=== PATIENT | female | born 1950 | race Caucasian/White ===

== ENCOUNTER → 2017-10-15 10:50 | Outpatient (CLI) | payer MEDICARE, OTHER | END | disposition home or self-care (01) | LOC: D.RAD 10:50 | DX: J01.90 Acute sinusitis, unspecified (principal) ==

== ENCOUNTER 2018-01-14 11:51 | Inpatient (IN) | payer MEDICARE, OTHER ==
[~2018-01-14] VITALS: Ht 165.1 cm; Wt 92.4 kg
--- NOTE | ~2018-01-14 | OP ---
PATIENT NAME: WALDEMAR WOLFE MEDICAL RECORD: [id number] :46 LOCATION:D.CVI D.CV04 ADMISSION DATE:01/14/18 SURGEON: OLE IVORY MD DATE OF OPERATION: 01/17/2018 SURGEON: Ole Ivory MD CUTTER WET MACHINE: APOLLO García MD and XIN Jones OPERATION PERFORMED: 1. Coronary artery bypass graft times 3 (left internal mammary to LAD, reverse saphenous vein graft from aorta to obtuse marginal and aorta to right coronary artery). 2. Endoscopic saphenous vein harvest. PREOPERATIVE DIAGNOSES: Coronary disease including critical right coronary stenosis and left main coronary stenosis with rest angina. POSTOPERATIVE DIAGNOSEIS: Coronary disease including critical right coronary stenosis and left main coronary stenosis with rest angina. ANESTHESIA: General endotracheal anesthesia. ESTIMATED BLOOD LOSS: Total cardiopulmonary bypass with Cell Saver retransfusion. COMPLICATIONS: None. SPECIMENS: Mediastinal lymph node initially benign. CONDITION: Stable. DISPOSITION: CV ICU. OPERATIVE FINDINGS: 1. Normal transesophageal echocardiography. 2. Fatty heart, but good contractility. 3. Dense adhesions in the lower thoracic cavity to the last one-third of the internal mammary artery, but the first two-thirds reached easily to the LAD with excellent flow. A somewhat thickened internal mammary artery wall. The LAD was a 2.0-mm vessel and there was excellent Doppler flow after anastomosis and after reversal of heparin. 4. Good quality greater saphenous vein was somewhat thin and near the skin in the portion around the knee and this was used for the obtuse marginal graft. The larger and thicker wall portion used for the right coronary graft. 5. Obtuse marginal 2.0 mm. 6. Right coronary artery 2.0 mm just past the acute margin. OPERATIVE INDICATION: Coronary artery disease including left main coronary stenosis, critical right coronary stenosis and rest angina. DESCRIPTION OF PROCEDURE: The patient was brought to the operating suite. General anesthesia was obtained, the patient was prepped and draped. Greater saphenous vein was harvested in the right lower extremity utilizing endoscopic technique. The second incision was also made, side branches divided. Vessel OPERATIVE REPORT [id number] WALDEMAR WOLFE ligated proximally and distally, removed. Side branches were clipped and leakage sites were oversewn. The leg was later closed in 2 layers. Median sternotomy incision was made. Subcutaneous tissue divided with electrocautery. Sternum was divided with a saw. Left hemisternum was elevated. Left pleural cavity was entered. Left internal mammary vein was taken as a pedicle graft. Sternal retractor was placed. Prepericardial fat had a small lymph node that was sent, about 1 cm lymph node returned benign. Pericardium was opened and heparin was given. Aorta was cannulated. Dual stage venous cannula was inserted. The internal mammary was clipped distally and made ready for anastomosis. The patient was placed on cardiopulmonary bypass. Sites for distal anastomoses were selected. The patient's temperature was allowed to drift downwardly. Crossclamp was placed. Antegrade cardioplegia needle was placed and the cardioplegia given antegrade and this repeated at 20-minute intervals during the crossclamp time. Distal anastomoses were performed in standard technique. Proximal anastomosis with a single cross-clamp technique. Aortic root was de-aired by removing the cross clamp, venting the root, tying the proximal anastomoses, venting the vein graft and then restoring flow in all grafts. Proximal and distal anastomotic sites were inspected for bleeding. The patient was fully rewarmed, weaned from cardiopulmonary bypass and was stable. The patient was decannulated. Aortic cannulation site was oversewn with a pledgeted Prolene suture. Thorough irrigation was undertaken and graft lay appropriately. Protamine was given. Drains were placed in the mediastinum and left pleural cavity. Ventricular pacing wires were placed. Left chest was evacuated and irrigated. The internal mammary harvest site was without bleeding. Pericardial fat was loosely reapproximated. Sternum was closed with a weave system and wires. The patient was stable and the chest closed. Fascia was closed. Subcutaneous tissue was closed at the lower end of the sternotomy where the other incisions met. The fascia was good and it was closed in interrupted fashion at this point. Subcutaneous tissue was closed. Skin was closed. Dermabond was placed. The needle and sponge counts reported correct. The patient was taken to ICU in stable condition. TRANSINT:[id number] Voice Confirmation ID: [id number] DOCUMENT ID: [id number] OLE IVORY MD at 1003 CC: YOLANDA CHÁVEZ DO and COLLEEN PARRISH M.D. [id number] DICTATION DATE: 01/17/18 1411 MEDICAL PHYSICIST: 01/17/18 1503 ADM IN [facility] [address] [id number]
--- NOTE | ~2018-01-14 | HEMODYNAMI ---
PATIENT:WALDEMAR WOLFE MEDICAL RECORD: [id number] : 46 LOCATION:DSTONE ADMISSION DATE: 01/14/18 Generatedon:01/14/201815:02 Patient name: WALDEMAR WOLFE Patient #: [id number] SSN: DO B: 1950 Date of study: 01/14/2018 Page: Of Hemodynamic Procedure Report Patient Data Patient Demographics Procedure consent was obtained First Name: WALDEMAR Gender: Female Last Name: AIDEN : 1950 [facility] Initial: L Age: 67 year(s) Patient #: [id number] Race: Unknown Additional ID: [id number] Contact details [address]: [address] [place] [address] State: [place] City: [place] Zip code: [address] Past Medical History Allergies: No known allergies Admission Admission Data Admission Date: 01/14/2018 Admission Time: 11:51 Arrival Date: 01/14/2018 Arrival Time: 0:00 Insurance Payor: Medicare Height (in.): 65 BSA: 1.95 (m2) Height (cm.): 165.1 BMI: 32.28 (kg/m2) Weight (lbs.): 194 Weight (kg.): 88 Procedure Procedure Types Cath Procedure Diagnostic Procedure LH LH w/Coronaries Procedure Description Procedure Date Procedure Date: 01/14/2018 Procedure Start Time: 14:32 Procedure End Time: 14:57 Procedure Staff Name Function Renny Bailey MD Performing Physician Mehreen Tony RT Monitor Jackie Chavez RT Scrub Chon Magana RN Nurse Procedure Data Cath Procedure Fluoroscopy Diagnostic fluoroscopy Total fluoroscopy Time: 9.3 time: 9.3 min min Diagnostic fluoroscopy Total fluoroscopy dose: dose: 1671 mGy 1671 mGy Contrast Material Contrast Material Type Amount (ml) Isovue 300 138 Entry Location Entry Primary Successful Side Size Upsize Upsize Entry Closure Reed ccessful Closure Location (Fr) 1 (Fr) 2 (Fr) Remarks Device Remarks Radial Right 6 Fr Mechanical artery Short Compression Estimated blood loss: 10 ml Diagnostic catheters Device Type Used For End Catheter Placement DIAGNOSTIC Bernard 110cm 5 Procedure Fr catheter ([id number]) DIAGNOSTIC AR1 MOD 5Fr Left Coronary catheter ([id number]) Angiography DIAGNOSTIC Doug 110cm Procedure 5Fr catheter ([id number]) DIAGNOSTIC Pigtail 5Fr Ventriculography catheter ([id number]) Procedure Complications No complications Procedure Medications Medication Administration Route Dosage 0.9% NaCl I.V. 100 ml/hr Oxygen etCO2 Nasal cannula 2 l/min Heparin Flush Bag added to field 2 bags (1000units/500ml NS) Lidocaine 2% added to field 20 Radial Cocktail added to field 1 syringe (Verapomil 2mg/Nitro 400mcg/Heparin 1500units) Versed I.V. 2 mg Fentanyl I.V. 100 mcg Versed I.V. 2 mg Fentanyl I.V. 100 mcg Radial Cocktail I.A. 1 syringe (Verapomil 2mg/Nitro 400mcg/Heparin 1500units) Hemodynamics Rest BSA: 1.95 (m2) O2 Consumption: Estimated: 188.14 (ml/min) O2 Consumption indexed : Estimated:96.48 (ml/min/m) Heart Rate: 81 (bpm) Pressure Samples Time Site Value (mmHg) Purpose Heart Use Rate(bpm) 14:36 LV 75/27,23 Snapshot 120 14:52 LV 152/6,19 Snapshot 110 14:53 AO 148/73(109) Pullback 100 14:53 LV 148/3,16 Pullback 100 Gradients Valve Time Site 1 Site 2 Mean SEP/DFP Peak To Heart Use (mmHg) (sec/min) Peak Rate (mmHg) (bpm) Aortic 14:36 LV AO 56 Aortic 14:53 LV AO 15 7 0 100 148/3,16 148/73(109) Calculations Valve P-P Mean Valve Index Valve Source Name Gradient Area Flow (cm2) Aortic 0 15 0 15 Snapshots Pre Cath Intra NCS Post Cath Vital Signs Time Heart Resp SPO2 etCO2 NIBP (mmHg) Rhythm Pain Sedation Rate (ipm) (%) (mmHg) Status Level (bpm) 14:21:59 80 10 95 38.1 125/72(95) NSR 0 (11) 10(A) , No pain 14:26:11 86 17 95 40.4 124/72(113) NSR 0 (11) 10(A) , No pain 14:30:23 91 17 96 38.9 136/67(101) NSR 0 (11) 10(A) , No pain 14:34:31 95 12 85 22.4 135/74(90) NSR 0 (11) 10(A) , No pain 14:38:35 101 19 92 25.4 105/68(101) NSR 0 (11) 10(A) , No pain 14:43:30 101 19 90 49.3 123/64(98) NSR 0 (11) 10(A) , No pain 14:47:35 95 19 93 49.3 112/64(89) NSR 0 (11) 9(A) , No pain 14:51:45 101 19 95 50 111/61(89) NSR 0 (11) 9(A) , No pain 14:55:55 99 10 93 48.6 109/64(89) NSR 0 (11) 9(A) , No pain Medications Time Medication Route Dose Verified Delivered Reason Notes Effectiveness by by 14:19:08 0.9% NaCl I.V. 100 Chon Chon Per ml/hr Chino Magana physician RN RN 14:19:20 Oxygen etCO2 2 l/min Chon Chon Per Nasal Chino Magana physician cannula RN RN 14:19:29 Heparin Flush added 2 bags Chon Chon used for Bag to Lorigan Chino procedure (1000units/500ml RN RN NS) 14:19:38 Lidocaine 2% added 20ml Chon Chon for local to vial Lorigan Lorigan anesthetic field MENDIOLA RN 14:19:49 Radial Cocktail added 1 Chon Chon used for (Verapomil to syringe Lorigan Lorigan procedure 2mg/Nitro field MENDIOLA RN 400mcg/Heparin 1500units) 14:24:34 Versed I.V. 2 mg Chon Chon for sedation Chino Magana RN RN 14:24:41 Fentanyl I.V. 100 mcg Chon Chon for sedation Chino Magana RN RN 14:32:29 Versed I.V. 2 mg Chon Chon for sedation Chino Magana RN RN 14:32:35 Fentanyl I.V. 100 mcg Chon Chon for sedation Chino Magana RN RN 14:35:04 Radial Cocktail I.A. 1 Chon Renny for (Verapomil syringe Lorigan Bailey MD vasodilation 2mg/Nitro RN 400mcg/Heparin 1500units) Procedure Log Time Note 14:02:58 Chon Magana RN sent for patient. Start room use. 14:02:59 Time tracking: Regular hours (M-F 7:00 - 5:00) 14:03:03 Plan of Care:Hemodynamics will remain stable., Cardiac rhythm will remain stable., Comfort level will be maintained., Respiratory function will remain adequate., Patient/ family verbilizes understanding of procedure., Procedure tolerated without complication., Recovers from procedure without complications.. 14:04:45 Patient Height : 65 inches 14:04:49 Patient Weight : 194 lbs 14:04:51 Arrival Date: 01/14/2018 12:00:00 AM 14:04:56 Insurance Payor : Medicare 14:08:04 Patient received from Pre/Post Procedure Room to [facility] 2 Alert and oriented. Tansferred to table in Supine position. 14:08:05 Warm blankets applied, and eldon hugger turned on for patient comfort. 14:08:05 Correct patient and procedure confirmed by team. 14:08:06 Signed procedure consent form obtained from patient. 14:08:07 ECG and BP/O2 sat monitors applied to patient. 14:19:08 0.9% NaCl 100 ml/hr I.V. was administered by Chon Magana RN; Per physician; 14:19:20 Oxygen 2 l/min etCO2 Nasal cannula was administered by Chon Magana RN; Per physician; 14:19:29 Heparin Flush Bag (1000units/500ml NS) 2 bags added to field was administered by Chon Magana RN; used for procedure; 14:19:38 Lidocaine 2% 20ml vial added to field was administered by Chon Magana RN; for local anesthetic; 14:19:49 Radial Cocktail (Verapomil 2mg/Nitro 400mcg/Heparin 1500units) 1 syringe added to field was administered by Chon Magana RN; used for procedure; 14:20:55 Vital chart was started 14:21:44 Baseline sample Acquired. 14:21:48 Rhythm: sinus rhythm 14:21:50 Full Disclosure recording started 14:21:59 H&P Date Dictated: 12/20/2017 Within 30 days and on chart., H&P Addendum completed by physician on day of procedure. (MUST COMPLETE FOR ALL OUTPATIENTS). 14:22:01 Pre-procedure instructions explained to patient. 14:22:03 Family in waiting room. 14:22:14 Patient NPO since Midnight. 14:22:25 Patient allergic to No known allergies 14:22:28 Is the patient allergic to Iodine/contrast media? No. 14:22:34 Is patient on blood thinner?No 14:22:37 Patient diabetic? Yes. 14:22:38 If diabetic: On Metformin? Yes 14:22:44 If on Metformin: Last Dose? 01/10/2018 14:22:49 Snore? No 14:22:51 Sleep apnea? No 14:22:55 Dentures? No ? 14:23:30 Patient pain scale 0/10 ?. 14:23:38 IV patent on arrival in left forearm with 0.9% NaCl at [facility]. 14:23:45 Lab results completed and on chart. 14:23:49 Right Radial & Right Groin area was prepped with chlora-prep and draped in sterile fashion 14:23:50 Alarms reviewed by R. N. 14:23:50 Sharps counted by scrub and verified by R.N. 14:23:51 Physician paged 14:23:53 Physician arrived 14:23:54 --------ALL STOP TIME OUT------ 14:23:54 Final Timeout: patient, procedure, and site verified with staff and physician. All members of the team are in agreement. 14:23:56 Right Radial & Right Groin site verified by team. 14:24:00 Physical assessment completed. ASA score P 2 - A patient with mild systemic disease as per Renny Bailey MD. 14:24:04 Sedation plan: IV Moderate Sedation Medication:Versed, Fentanyl 14:24:11 Use device set Radial Dx or PCI 14:24:34 Versed 2 mg I.V. was administered by Chon Magana RN; for sedation; 14:24:41 Fentanyl 100 mcg I.V. was administered by Chon Magana RN; for sedation; 14:26:13 ACIST Syringe (55817) opened to sterile field. 14:26:13 Medline Cath Pack ([id number]) opened to sterile field. 14:26:14 Bag Decanter () opened to sterile field. 14:26:14 DIAGNOSTIC WIRE .035 260cm J wire (341491) opened to sterile field. 14:26:15 ACIST Hand Control (32262) opened to sterile field. 14:26:15 ACIST Manifold (78257) opened to sterile field. 14:26:16 Tegaderm 4 x 4 (1626W) opened to sterile field. 14:26:17 MBrace Wrist Support ([id number]) opened to sterile field. 14:26:24 NEEDLE Cook 21G 4cm Radial (U09025) opened to sterile field. 14:26:27 SHEATH 6Fr Prelude Radial ([id number]) opened to sterile field. 14:28:09 Zero performed for pressure channel P1 14:28:20 Zero performed for pressure channel P1 14:32:29 Versed 2 mg I.V. was administered by Chon Magana RN; for sedation; 14:32:35 Fentanyl 100 mcg I.V. was administered by Chon Magana RN; for sedation; 14:32:50 Procedure started. 14:32:57 Local anesthetic to right radial artery with Lidocaine 2% by Renny Bailey MD.INITIAL ACCESS ONLY 14:33:07 A 6 Fr Short sheath was inserted into the Right Radial artery 14:34:58 A DIAGNOSTIC Bernard 110cm 5 Fr catheter (692566) was advanced over the wire and used for Procedure. 14:35:04 Radial Cocktail (Verapomil 2mg/Nitro 400mcg/Heparin 1500units) 1 syringe I.A. was administered by Renny Bailey MD; for vasodilation; 14:39:03 Catheter removed. 14:40:29 A DIAGNOSTIC AR1 MOD 5Fr catheter (363536Z) was advanced over the wire and used for Left Coronary Angiography. 14:42:35 RCA angiography performed. 14:42:44 Catheter removed. 14:44:26 A DIAGNOSTIC Doug 110cm 5Fr catheter (329274) was advanced over the wire and used for Procedure. 14:44:33 LCA angiography performed. 14:44:44 Catheter removed. 14:45:32 GUIDE 5FR EBU 3.5 catheter ([id number]) opened to sterile field. 14:47:19 LCA angiography performed. 14:50:32 A DIAGNOSTIC Pigtail 5Fr catheter (494366A) was advanced over the wire and used for Ventriculography. 14:50:38 LV gram done using FRANKLIN 14:53:17 EF : 60 % 14:53:20 TR BAND Standard ([id number]) opened to sterile field. 14:54:12 Aortic Root visualized 14:55:00 Catheter removed. 14:55:21 Sheath removed intact; hemostasis achieved with Mechanical Compression to the Right Radial artery. 14:55:47 Procedure ended.(Physican Out) 14:56:04 Fluoroscopy time 09.30 minutes. 14:56:09 Fluoroscopy dose: 1671 mGy 14:56:09 Flurop Dose total: 1671 14:56:13 Contrast amount:Isovue 300 138ml. 14:56:15 Sharps counted by scrub and verified by R.N. 14:56:17 Insertion/operative site no bleeding no hematoma. 14:56:24 Post-procedure physical assessment completed. ASA score P 2 - A patient with mild systemic disease as per Renny Bailey MD. 14:56:28 Post procedure rhythm: unchanged. 14:56:34 Estimated blood loss: 10 ml 14:56:36 Post procedure instruction explained to patient.Patient verbalizes understanding. 14:56:49 Procedure and supply charges have been captured, reviewed, submitted and are correct. 14:57:40 Procedure Complication : No complications 14:57:43 Vital chart was stopped 14:57:44 See physician's report for complete and final results. 14:57:45 Report given to Pre/Post Procedure Room. 14:57:49 Patient transfered to Pre/Post Procedure Room with Stretcher. 14:57:51 Procedure ended. 14:57:51 Full Disclosure recording stopped 14:57:55 End room use (Document Last) Device Usage Item Name Manufacture Quantity Catalog Number Hospital Part Current M inimal Lot# / Charge Number Stock Stock Serial# Code ACIST Syringe Acist 1 41763 104328 336802 186763 2 0 (74060) Medical Systems Inc Medline Cath Medline 1 [id number] 880004 68937 823579 5 Pack ([id number]) Bag Decanter Microtek 1 586917 51874 316665 5 () Medical Inc. DIAGNOSTIC WIRE St Jaylon 1 828127 191604 385368 045180 3 0 .035 260cm J wire (078158) ACIST Hand Acist 1 47001 082659 438291 792139 5 Control (05869) Medical Systems Inc ACIST Manifold Acist 1 91408 869127 729623 821702 5 (59500) Medical Systems Inc Tegaderm 4 x 4 3M 1 1626W 835054 732613 295872 5 (1626W) MBrace Wrist Advanced 1 140-0250-00 452271 77397 106234 5 Support Vascular ([id number]) Dynamics NEEDLE Cook 21G Cook Medical 1 P67192 780474 620719 340443 5 4cm Radial (O97288) SHEATH 6Fr Merit 1 [id number] 868415 434442 183848 5 Prelude Radial Medical ([id number]) DIAGNOSTIC Terumo 1 40-4253 587190 440835 032070 5 Bernard 110cm 5 Fr catheter (962532) DIAGNOSTIC AR1 Cardinal 1 066716W 094007 220014 601031 1 5 MOD 5Fr Health catheter (442130Z) DIAGNOSTIC Terumo 1 40-3553 117565 189846 624101 5 Doug 110cm 5Fr catheter (957324) GUIDE 5FR EBU Medtronic 1 [id number] 554888 634902 971534 1 3.5 catheter ([id number]) DIAGNOSTIC Cardinal 1 177438X 024430 647725 191239 5 Pigtail 5Fr Health catheter (871920A) TR BAND Terumo 1 [id number] 090786 270160 845067 4 0 Standard ([id number]) Signature Audit Hope Hull Stage Time Signature Unsigned Intra-Procedure 01/14/2018 Mehreen Tony 3:02:01 PM RT(R) Signatures Monitor : Mehreen Tony Signature : RT Date : Time : [facility] [address] [place] [address]
--- NOTE | ~2018-01-14 | MORECARE ---
CASE MANAGEMENT DISCHARGE SUMMARY PATIENT: WALDEMAR WOLFE UNIT: [id number] ADM DATE: 01/14/18 AGE: 67 : 48 SEX: F ROOM/BED: [facility] AUTHOR: DONAL CASTRO PHYSICIAN: REFERRING PHYSICIAN: COLLEEN PARRISH M.D. DATE OF SERVICE: 01/23/18 Discharge Plan Patient Name: WALDEMAR WOLFE Facility: [facility]:[place] : 1950 Planned Disposition: Home Anticipated Discharge Date: Discharge Date: Expected LOS: Initial Reviewer: [email or web address] Initial Review Date: 01/15/2018 Generated: 01/23/18 12:48 pm Patient Name: WALDEMAR WOLFE Page 81306 at 1148 All edits/amendments must be made on the electronic document DICTATION DATE: 01/23/18 1148 ADMINISTRATION ASSISTANT: ERROL 01/23/18 1148 RPT#: [id number] DC DATE: STATUS: ADM IN [facility] [address] [place] [address] END OF REPORT
--- NOTE | ~2018-01-14 | TEE ---
PATIENT:WALDEMAR WOLFE MEDICAL RECORD: [id number] LOCATION:[place] [address] AGE OF PATIENT: 67 ADMISSION DATE: 01/14/18 SEX: F REFERRING PHYSICIAN: INTERPRETING PHYSICIAN: MARCIN ARECHIGA MD TRANSESOPHAGEAL ECHOCARDIOGRAM Date: 01/17/18 ROBERTO CHARGE Y INDICATIONS: CABG PREMEDICATIONS: PATIENT'S RESPONSE PROCEDURE DOPPLER MEASUREMENTS: LVIT LA PA 104 RA LVOT 146 RVOT 89.0 Asc. Ao 190 AV Gradient Peak 14.4 AV Mean 7.9 AV Area 1.7 MV Gradient Peak 7.1 MV Mean 2.7 MV Area INTERPRETATION: LVd: 4.1 cm LVs: 2.8 cm Doppler: 2-D: COLOR FLOW DOPPLER NORMAL SALINE STUDY: MISCELLANOUS: DIAGNOSIS: PLAN: Outsole Caser:To Bailey Supervisory It Specialist: Jean-Paul MATHEW COMMENTS: DATE OF SERVICE: 01/17/2018 PROCEDURE: Transesophageal echo evaluation of valvular structures during bypass surgery. FINDINGS: 1. Left ventricular chamber size is within normal limits. Left ventricular systolic function is normal. Overall ejection fraction estimated 60%. 2. Left atrium, right atrium, and right ventricular chamber sizes are within TRANSESOPHAGEAL ECHOCARDIOGRAM REPORT [id number] WALDEMAR WOLFE normal limits. 3. Valvular structures have normal structure and motion. 4. Doppler interrogation only reveals mhiro-jb-gvdw mitral regurgitation, no other valvular insufficiency or stenosis. 5. No evidence of pericardial effusion or left ventricular thrombus. TRANSINT:[id number] Voice Confirmation ID: [id number] DOCUMENT ID: [id number] at 1059 CC: [id number] DICTATION DATE: 01/17/18 1227 ASBESTOS WORKER HELPER: 01/17/18 2246 DIS IN 01/23/18 [place] [address]
--- NOTE | ~2018-01-14 | MORECARE ---
CASE MANAGEMENT DISCHARGE SUMMARY PATIENT: WALDEMAR WOLFE UNIT: [id number] ADM DATE: 01/14/18 AGE: 67 : 48 SEX: F ROOM/BED: [facility] AUTHOR: DONAL CASTRO PHYSICIAN: REFERRING PHYSICIAN: COLLEEN PARRISH M.D. DATE OF SERVICE: 01/23/18 Discharge Plan Patient Name: WALDEMAR WOLFE Facility: [facility]:[place] : 1950 Planned Disposition: Home Anticipated Discharge Date: Discharge Date: 01/23/2018 Expected LOS: Initial Reviewer: [email or web address] Initial Review Date: 01/15/2018 Generated: 01/23/18 6:36 pm Comments DCP- Discharge Planning Updated by [email or web address]: Jelly Serrato on 01/23/18 4:[address] Late Entry 01/23/18 @ 1100 Patient Name: WALDEMAR WOLFE Admission Status: Elective Accout number: [id number] Admission Date: 01-14-2018 : 1950 Admission Diagnosis:CHEST PAIN, UNSPECIFIED Attending: COLLEEN PARRISH Current LOS: 9 Anticipated DC Date: Planned Disposition: Home Primary Insurance: MEDICARE A & B Discharge Planning Comments: CM met with patient and daughter at bedside after obtaining verbal consent. Patient plans on returning to her home. Patient states that her daughters will be staying with her for next two weeks. Patient denies any discharge needs at this time. IMM explained and served 01/23/18 @ 1110. CM will continue to follow and assist as needed with discharge planning / needs. Service Parts Driver: Jelly Serrato Coverage Notice Reviewer: [email or web address] - Jelly Serrato Notice Issued Date-Time: 01/23/2018 11:10 Notice Type: IM Discharge Notice Notice Delivered To: Patient Relationship to Patient: Self Physician Practice Coordinator Name: Delivery Method: HAND - Hand Delivered Susi Days: Prior Verbal Notification: Recipient Understood Notice: Yes Recipient Signature: Yes Med Rec Note Co-signed by Attending: Coverage Notice Comment: Last DP export: 01/23/18 10:48 a Patient Name: WALDEMAR WOLFE Page 51817 at 1736 All edits/amendments must be made on the electronic document DICTATION DATE: 01/23/181734 COMBINATION MACHINE TOOL SETTER: ERROL 01/23/181734 RPT#: [id number] DC DATE:01/23/18 STATUS: DIS IN [facility] [address] [place] [address] END OF REPORT
[2018-01-14] MEDS ORDERED: AMBIEN5 MG PO (12:42)
[2018-01-14] MEDS ORDERED: MOBIC7.5 MG PO (12:43)
[2018-01-14] MEDS ORDERED: ATROVENT HFA12.9 GM INH (12:43)
[2018-01-14] MEDS ORDERED: EFFEXOR XR75 MG PO (12:44)
[2018-01-14] MEDS ORDERED: GLUCOPHAGE1000 MG PO (12:44)
[2018-01-14] MEDS ORDERED: OXYCODONE-APAP1 T10 PO (12:44)
[2018-01-14] MEDS ORDERED: COZAAR50 MG PO (12:45)
[2018-01-14] MEDS ORDERED: PRAVACHOL40 MG PO (12:45)
[2018-01-14 12:55] VITALS: BP 138/82; BMI 30.8
[2018-01-14 13:17] LABS: CALC OSMOLALITY 283 mosm/kg (275-300); CALCIUM 9.5 mg/dL (8.5-10.1); CARBON DIOXIDE 25.7 mmol/L (21.0-32.0); CHLORIDE - SERUM 103 mmol/L (98-107); CREATININE - SERUM 0.8 mg/dL (0.6-1.3); GLUCOSE 182 mg/dL (74-106); SODIUM 139 mmol/L (136-145); UREA NITROGEN 16 mg/dL (7-18); eGFR NON AFRICAN AMERICAN 75 mL/min (90-120)
[2018-01-14 13:18] LABS: POTASSIUM - SERUM 4.4 mmol/L (3.5-5.1)
[2018-01-14 13:31] LABS: BASOPHILS 0.3 % (0-2); EOSINOPHILS 2.6 % (0-7); HEMATOCRIT 39.1 % (36.0-48.0); HEMOGLOBIN 13.6 g/dL (12-16); IMMATURE GRANULOCYTES 0.3 % (0-5); LYMPHOCYTES 29.8 % (15-50); MCH 33.8 pg (26.0-34.0); MCHC 34.8 g/dL (31.0-37.0); MCV 97.3 fL (80.0-100.0); MEAN PLATELET VOLUME 10.4 fL (7.4-10.4); MONOCYTES 8.8 % (2-11); NEUTROPHILS 58.2 % (40-80); PLATELET COUNT 245 10x3/uL (130-400); RBC 4.02 10x6/uL (4.00-5.40); RDW 12.1 % (11.5-14.5)
[2018-01-14 17:46] VITALS: BP 127/69; BMI 32.5
[2018-01-14 18:46] LABS: HEMATOCRIT 35.8 % (36.0-48.0); HEMOGLOBIN 12.3 g/dL (12-16); MCH 33.7 pg (26.0-34.0); MCHC 34.4 g/dL (31.0-37.0); MCV 98.1 fL (80.0-100.0); RBC 3.65 10x6/uL (4.00-5.40); RDW 12.2 % (11.5-14.5)
[2018-01-14 18:53] LABS: APTT 25.4 SECONDS (22.8-39.4)
[2018-01-14 18:54] LABS: INR 1.06 (0.85-1.17); PROTIME 13.4 SECONDS (11.6-15.0)
[2018-01-14 21:30] VITALS: BP 133/70
[2018-01-15 00:49] VITALS: BP 101/44
[2018-01-15 06:23] VITALS: BP 116/42
[2018-01-15 08:45] VITALS: BP 129/50
[2018-01-15 11:29] LABS: BASOPHILS 0.4 % (0-2); EOSINOPHILS 3.2 % (0-7); HEMATOCRIT 34.6 % (36.0-48.0); HEMOGLOBIN 11.8 g/dL (12-16); IMMATURE GRANULOCYTES 0.2 % (0-5); MCH 33.6 pg (26.0-34.0); MCHC 34.1 g/dL (31.0-37.0); MCV 98.6 fL (80.0-100.0); MEAN PLATELET VOLUME 9.9 fL (7.4-10.4); MONOCYTES 6.1 % (2-11); NEUTROPHILS 52.1 % (40-80); PLATELET COUNT 173 10x3/uL (130-400); RBC 3.51 10x6/uL (4.00-5.40); RDW 12.4 % (11.5-14.5)
[2018-01-15 11:31] LABS: WBC 5.7 10x3/uL (4.8-10.8)
[2018-01-15 11:45] LABS: INR 1.07 (0.85-1.17); PROTIME 13.5 SECONDS (11.6-15.0)
[2018-01-15 12:32] LABS: ALBUMIN 3.3 g/dL (3.4-5.0); ANION GAP 11.3 mmol/L (8-16); BILIRUBIN - TOTAL 0.25 mg/dL (0.2-1.3); CALCIUM 8.3 mg/dL (8.5-10.1); CARBON DIOXIDE 29.6 mmol/L (21.0-32.0); CREATININE - SERUM 0.9 mg/dL (0.6-1.3); PHOSPHOROUS 3.7 mg/dL (2.5-4.9); POTASSIUM - SERUM 3.9 mmol/L (3.5-5.1); PROTEIN - SERUM 6.6 g/dL (6.4-8.2); T4 THYROXIN - FREE 0.89 ng/dL (0.76-1.46); THYROID STIMULATING HORMONE 2.79 uIU/mL (0.36-3.74); URIC ACID 5.5 mg/dL (2.6-7.2)
[2018-01-15 12:35] VITALS: Ht 165.1 cm; Wt 92.4 kg
[2018-01-15 13:13] LABS: APPEARANCE HAZY (CLEAR); BILIRUBIN NEGATIVE (NEGATIVE); COLOR YELLOW (YELLOW); GLUCOSE NEGATIVE (NEGATIVE); KETONE NEGATIVE (NEGATIVE); NITRITE NEGATIVE (NEGATIVE); PROTEIN NEGATIVE (NEGATIVE); UROBILINOGEN NORMAL (NORMAL)
[2018-01-15 13:19] VITALS: BP 161/81
[2018-01-15 16:36] VITALS: BP 139/66
[2018-01-15 20:00] VITALS: BP 126/49
[2018-01-16] VITALS (7 sets, daily range): BP systolic 99–151; BP diastolic 49–73
[2018-01-16 02:26] LABS: BASOPHILS 0.4 % (0-2); EOSINOPHILS 2.7 % (0-7); HEMOGLOBIN 11.9 g/dL (12-16); IMMATURE GRANULOCYTES 0.1 % (0-5); LYMPHOCYTES 43.6 % (15-50); MCH 33.2 pg (26.0-34.0); MCV 97.8 fL (80.0-100.0); MEAN PLATELET VOLUME 9.8 fL (7.4-10.4); MONOCYTES 8.4 % (2-11); NEUTROPHILS 44.8 % (40-80); PLATELET COUNT 177 10x3/uL (130-400); RBC 3.58 10x6/uL (4.00-5.40)
[2018-01-16 02:31] LABS: WBC 7.4 10x3/uL (4.8-10.8)
[2018-01-16 02:42] LABS: ALBUMIN 3.3 g/dL (3.4-5.0); ALKALINE PHOSPHATASE 69 U/L (46-116); ALT (SGPT) 52 U/L (10-68); BILIRUBIN - TOTAL 0.23 mg/dL (0.2-1.3); CALC OSMOLALITY 285 mosm/kg (275-300); CALCIUM 8.8 mg/dL (8.5-10.1); CARBON DIOXIDE 31.3 mmol/L (21.0-32.0); CHLORIDE - SERUM 106 mmol/L (98-107); CREATININE - SERUM 0.8 mg/dL (0.6-1.3); GLUCOSE 149 mg/dL (74-106); POTASSIUM - SERUM 4.1 mmol/L (3.5-5.1); PROTEIN - SERUM 6.8 g/dL (6.4-8.2); SODIUM 142 mmol/L (136-145); UREA NITROGEN 13 mg/dL (7-18); eGFR NON AFRICAN AMERICAN 75 mL/min (90-120)
[2018-01-17] VITALS (46 sets, daily range): BP systolic 90–144; BP diastolic 41–89
[2018-01-17 14:13] LABS: INR 1.72 (0.85-1.17); PROTIME 19.6 SECONDS (11.6-15.0)
[2018-01-17 14:16] LABS: APTT 34.6 SECONDS (22.8-39.4)
[2018-01-18] VITALS (38 sets, daily range): BP systolic 90–142; BP diastolic 46–79
[2018-01-18 06:15] LABS: HEMATOCRIT 33.7 % (36.0-48.0); HEMOGLOBIN 11.2 g/dL (12-16); MCHC 33.2 g/dL (31.0-37.0); MCV 99.4 fL (80.0-100.0); MEAN PLATELET VOLUME 11.2 fL (7.4-10.4); RBC 3.39 10x6/uL (4.00-5.40); WBC 17.8 10x3/uL (4.8-10.8)
[2018-01-18 06:51] LABS: ALBUMIN 2.9 g/dL (3.4-5.0); ANION GAP 15.9 mmol/L (8-16); BILIRUBIN - TOTAL 0.43 mg/dL (0.2-1.3); CALCIUM 7.4 mg/dL (8.5-10.1); CARBON DIOXIDE 21.6 mmol/L (21.0-32.0); CREATININE - SERUM 0.9 mg/dL (0.6-1.3); POTASSIUM - SERUM 4.5 mmol/L (3.5-5.1); PROTEIN - SERUM 5.9 g/dL (6.4-8.2)
[2018-01-19] VITALS (24 sets, daily range): BP systolic 81–149; BP diastolic 34–74
[2018-01-19 06:18] LABS: HEMATOCRIT 30.6 % (36.0-48.0); HEMOGLOBIN 10.2 g/dL (12-16); MCH 33.7 pg (26.0-34.0); MCHC 33.3 g/dL (31.0-37.0); MEAN PLATELET VOLUME 10.5 fL (7.4-10.4); RBC 3.03 10x6/uL (4.00-5.40); RDW 13.2 % (11.5-14.5)
[2018-01-19 06:36] LABS: ALBUMIN 2.7 g/dL (3.4-5.0); ALKALINE PHOSPHATASE 50 U/L (46-116); ALT (SGPT) 31 U/L (10-68); BILIRUBIN - TOTAL 0.41 mg/dL (0.2-1.3); CALCIUM 8.1 mg/dL (8.5-10.1); CHLORIDE - SERUM 103 mmol/L (98-107); CREATININE - SERUM 0.7 mg/dL (0.6-1.3); GLUCOSE 168 mg/dL (74-106); POTASSIUM - SERUM 4.2 mmol/L (3.5-5.1); PROTEIN - SERUM 5.9 g/dL (6.4-8.2); SODIUM 138 mmol/L (136-145); eGFR NON AFRICAN AMERICAN 88 mL/min (90-120)
[2018-01-19 06:37] LABS: CALC OSMOLALITY 277 mosm/kg (275-300); CARBON DIOXIDE 28.4 mmol/L (21.0-32.0); UREA NITROGEN 8 mg/dL (7-18)
[2018-01-20] VITALS (24 sets, daily range): BP systolic 97–149; BP diastolic 36–72
[2018-01-20 06:08] LABS: HEMATOCRIT 30.3 % (36.0-48.0); HEMOGLOBIN 9.9 g/dL (12-16); MCH 33.2 pg (26.0-34.0); MCHC 32.7 g/dL (31.0-37.0); MCV 101.7 fL (80.0-100.0); MEAN PLATELET VOLUME 10.4 fL (7.4-10.4); RBC 2.98 10x6/uL (4.00-5.40); RDW 13.2 % (11.5-14.5); WBC 13.7 10x3/uL (4.8-10.8)
[2018-01-20 06:36] LABS: ALBUMIN 2.5 g/dL (3.4-5.0); ALKALINE PHOSPHATASE 57 U/L (46-116); ALT (SGPT) 29 U/L (10-68); BILIRUBIN - TOTAL 0.32 mg/dL (0.2-1.3); CALC OSMOLALITY 282 mosm/kg (275-300); CALCIUM 8.8 mg/dL (8.5-10.1); CARBON DIOXIDE 28.8 mmol/L (21.0-32.0); CHLORIDE - SERUM 105 mmol/L (98-107); CREATININE - SERUM 0.7 mg/dL (0.6-1.3); GLUCOSE 160 mg/dL (74-106); POTASSIUM - SERUM 4.5 mmol/L (3.5-5.1); PROTEIN - SERUM 6.2 g/dL (6.4-8.2); SODIUM 141 mmol/L (136-145); UREA NITROGEN 10 mg/dL (7-18); eGFR NON AFRICAN AMERICAN 88 mL/min (90-120)
[2018-01-21] VITALS (24 sets, daily range): BP systolic 109–169; BP diastolic 39–87
[2018-01-21 06:16] LABS: HEMATOCRIT 29.6 % (36.0-48.0); HEMOGLOBIN 9.8 g/dL (12-16); MCH 33.3 pg (26.0-34.0); MCHC 33.1 g/dL (31.0-37.0); MCV 100.7 fL (80.0-100.0); MEAN PLATELET VOLUME 9.8 fL (7.4-10.4); RBC 2.94 10x6/uL (4.00-5.40); RDW 13.4 % (11.5-14.5); WBC 10.4 10x3/uL (4.8-10.8)
[2018-01-21 06:37] LABS: ALBUMIN 2.5 g/dL (3.4-5.0); ALKALINE PHOSPHATASE 61 U/L (46-116); ALT (SGPT) 27 U/L (10-68); CALC OSMOLALITY 284 mosm/kg (275-300); CALCIUM 8.7 mg/dL (8.5-10.1); CARBON DIOXIDE 25.3 mmol/L (21.0-32.0); CHLORIDE - SERUM 105 mmol/L (98-107); CREATININE - SERUM 0.7 mg/dL (0.6-1.3); GLUCOSE 176 mg/dL (74-106); PROTEIN - SERUM 6.4 g/dL (6.4-8.2); SODIUM 141 mmol/L (136-145); UREA NITROGEN 12 mg/dL (7-18); eGFR NON AFRICAN AMERICAN 88 mL/min (90-120)
[2018-01-21 06:40] LABS: POTASSIUM - SERUM 3.7 mmol/L (3.5-5.1)
[2018-01-22] VITALS (24 sets, daily range): BP systolic 100–172; BP diastolic 46–88
[2018-01-22 06:29] LABS: HEMATOCRIT 30.2 % (36.0-48.0); MCH 33.1 pg (26.0-34.0); MCHC 33.1 g/dL (31.0-37.0); MEAN PLATELET VOLUME 9.9 fL (7.4-10.4); RBC 3.02 10x6/uL (4.00-5.40); RDW 13.6 % (11.5-14.5); WBC 10.5 10x3/uL (4.8-10.8)
[2018-01-22 06:46] LABS: ALBUMIN 2.6 g/dL (3.4-5.0); ANION GAP 13.2 mmol/L (8-16); BILIRUBIN - TOTAL 0.44 mg/dL (0.2-1.3); CALCIUM 8.9 mg/dL (8.5-10.1); CARBON DIOXIDE 26.5 mmol/L (21.0-32.0); POTASSIUM - SERUM 3.7 mmol/L (3.5-5.1); PROTEIN - SERUM 6.8 g/dL (6.4-8.2)
[2018-01-22 06:50] LABS: CREATININE - SERUM 0.9 mg/dL (0.6-1.3)
[2018-01-23] VITALS (9 sets, daily range): BP systolic 143–166; BP diastolic 61–83
[2018-01-23] MEDS ORDERED: PERCOCET 5-3251 TAB PO (08:47)
[2018-01-23] MEDS ORDERED: COZAAR25 MG PO (10:51)
[2018-01-23] MEDS ORDERED: AMIODARONE HCL200 MG PO (10:51)
[2018-01-23] MEDS ORDERED: TOPROL XL25 MG PO (10:51)
[2018-01-23] MEDS ORDERED: ASPIRIN EC81 M1 PO (10:52)
[2018-01-23] MEDS ORDERED: K-DUR20 MEQ PO (10:52)
[2018-01-23] MEDS ORDERED: COLACE100 MG PO (10:53)
== END 2018-01-23 13:07 | disposition home or self-care (01) | DRG 234 ==
LOC: D.CATH 11:51 → D.M2 17:25 → D.CATH 17:26 → D.CVICU 17:27 → D.M2 17:27 → D.CVICU 01-16 18:49
PROVIDERS: Family Medicine; Internal Medicine Cardiovascular Disease; Thoracic Surgery (Cardiothoracic Vascular Surgery)
PROC: B2151ZZ Fluoroscopy of Left Heart using Low Osmolar Contrast (ICD-10-PCS; 2018-01-14)
PROC: 4A023N7 Measurement of Cardiac Sampling and Pressure, Left Heart, Percutaneous Approach (ICD-10-PCS; 2018-01-14)
PROC: B2111ZZ Fluoroscopy of Multiple Coronary Arteries using Low Osmolar Contrast (ICD-10-PCS; principal; 2018-01-14 14:00)
PROC: 021109W Bypass Coronary Artery, Two Arteries from Aorta with Autologous Venous Tissue, Open Approach (ICD-10-PCS; 2018-01-17)
PROC: 02100Z9 Bypass Coronary Artery, One Artery from Left Internal Mammary, Open Approach (ICD-10-PCS; 2018-01-17)
PROC: 06BP4ZZ Excision of Right Saphenous Vein, Percutaneous Endoscopic Approach (ICD-10-PCS; 2018-01-17)
PROC: 5A1221Z Performance of Cardiac Output, Continuous (ICD-10-PCS; 2018-01-17)
PROC: B245ZZ4 Ultrasonography of Left Heart, Transesophageal (ICD-10-PCS; 2018-01-17)
DX: I25.10 Atherosclerotic heart disease of native coronary artery without angina pectoris (principal); F33.1 Major depressive disorder, recurrent, moderate; E11.65 Type 2 diabetes mellitus with hyperglycemia; I10 Essential (primary) hypertension; E78.5 Hyperlipidemia, unspecified; I35.1 Nonrheumatic aortic (valve) insufficiency; Z87.891 Personal history of nicotine dependence

== ENCOUNTER → 2018-02-12 09:08 | Outpatient (CLI) | payer MEDICARE, OTHER ==
[2018-01-15 12:35] VITALS: BMI 32.4
[~2018-02-12 09:08] MED LIST: AMBIEN5 MG PO; AMIODARONE HCL200 MG PO; ASPIRIN EC81 M1 PO; ATROVENT HFA12.9 GM INH; COLACE100 MG PO; COZAAR25 MG PO; COZAAR50 MG PO; EFFEXOR XR75 MG PO; GLUCOPHAGE1000 MG PO; K-DUR20 MEQ PO; MOBIC7.5 MG PO; OXYCODONE-APAP1 T10 PO; PERCOCET 5-3251 TAB PO; PRAVACHOL40 MG PO; TOPROL XL25 MG PO
[2018-02-12 09:56] LABS: HEMATOCRIT 37.7 % (36.0-48.0); HEMOGLOBIN 12.5 g/dL (12-16); MCH 33.5 pg (26.0-34.0); MCHC 33.2 g/dL (31.0-37.0); MCV 101.1 fL (80.0-100.0); MEAN PLATELET VOLUME 9.9 fL (7.4-10.4); RBC 3.73 10x6/uL (4.00-5.40); RDW 13.6 % (11.5-14.5)
[2018-02-12 10:36] LABS: ALBUMIN 3.7 g/dL (3.4-5.0); ANION GAP 15.4 mmol/L (8-16); BILIRUBIN - TOTAL 0.22 mg/dL (0.2-1.3); CALCIUM 9.4 mg/dL (8.5-10.1); CARBON DIOXIDE 25.9 mmol/L (21.0-32.0); CREATININE - SERUM 1.1 mg/dL (0.6-1.3); POTASSIUM - SERUM 4.3 mmol/L (3.5-5.1)
== END | disposition home or self-care (01) ==
LOC: D.RAD 09:08
PROVIDERS: Thoracic Surgery (Cardiothoracic Vascular Surgery)
DX: D64.9 Anemia, unspecified (principal); J91.8 Pleural effusion in other conditions classified elsewhere

== ENCOUNTER → 2019-11-05 12:28 | Outpatient (CLI) | payer MEDICARE, OTHER ==
[2018-01-15 12:35] VITALS: BMI 32.4
== END | disposition home or self-care (01) ==
LOC: D.US 12:28
PROVIDERS: ATTEND Family Medicine
DX: M79.604 Pain in right leg (principal)

== ENCOUNTER → 2019-11-18 13:03 | Outpatient (CLI) | payer MEDICARE, OTHER ==
[2018-01-15 12:35] VITALS: BMI 32.4
== END | disposition home or self-care (01) ==
LOC: D.CT 13:03
PROVIDERS: ATTEND Family Medicine
DX: I70.0 Atherosclerosis of aorta (principal)

== ENCOUNTER 2019-12-04 15:57 | Inpatient (IN) | payer MEDICARE, OTHER ==
[~2019-12-04] VITALS: Ht 165.1 cm; Wt 74.8 kg
[2019-12-04 16:34] LABS: BASOPHILS 0.3 % (0-2); EOSINOPHILS 0 % (0-7); HEMATOCRIT 43.1 % (36.0-48.0); HEMOGLOBIN 14.7 g/dL (12-16); IMMATURE GRANULOCYTES 0.4 % (0-5); LYMPHOCYTES 9.7 % (15-50); MCH 32.5 pg (26.0-34.0); MCHC 34.1 g/dL (31.0-37.0); MCV 95.1 fL (80.0-100.0); MEAN PLATELET VOLUME 9.7 fL (7.4-10.4); MONOCYTES 6.9 % (2-11); NEUTROPHILS 82.7 % (40-80); RBC 4.53 10x6/uL (4.00-5.40); WBC 7.2 10x3/uL (4.8-10.8)
[2019-12-04 16:38] LABS: PLATELET COUNT 187 10x3/uL (130-400)
[2019-12-04 16:43] LABS: CALC OSMOLALITY 272 mosm/kg (275-300); CARBON DIOXIDE 25.1 mmol/L (21.0-32.0); CHLORIDE - SERUM 96 mmol/L (98-107); POTASSIUM - SERUM 3.4 mmol/L (3.5-5.1); SODIUM 132 mmol/L (136-145); UREA NITROGEN 12 mg/dL (7-18); eGFR NON AFRICAN AMERICAN 58 mL/min (90-120)
[2019-12-04 16:44] LABS: GLUCOSE 244 mg/dL (74-106)
[2019-12-04 16:46] LABS: INR 1.12 (0.85-1.17); PROTIME 14.4 SECONDS (11.6-15.0)
[2019-12-04 16:47] LABS: APTT 34.7 SECONDS (22.8-39.4)
[2019-12-04 17:00] LABS: BILIRUBIN NEGATIVE (NEGATIVE); KETONE SMALL mg/dL (NEGATIVE); NITRITE NEGATIVE (NEGATIVE); UROBILINOGEN NORMAL mg/dL (< 2)
[2019-12-04 17:04] LABS: WHITE CELLS - URINE 0-5 HPF (0-4)
[2019-12-04 17:05] LABS: AMORPHOUS SEDIMENT <1+ /lpf (NONE SEEN); BACTERIA FEW HPF (NONE SEEN); EPITHELIAL CELLS NSEEN /hpf (0-5)
[2019-12-04 17:10] LABS: ALBUMIN 3.5 g/dL (3.4-5.0); ALKALINE PHOSPHATASE 68 U/L (30-120); ALT (SGPT) 41 U/L (10-68); BILIRUBIN - TOTAL 0.55 mg/dL (0.2-1.3); CREATINE KINASE 411 UL (21-215); MAGNESIUM - SERUM 1.7 mg/dL (1.8-2.4); PROTEIN - SERUM 8.6 g/dL (6.4-8.2)
[2019-12-04 17:13] LABS: UDS - AMPHET NEGATIVE QUAL (NEGATIVE); UDS - BARB NEGATIVE QUAL (NEGATIVE); UDS - BENZO NEGATIVE QUAL (NEGATIVE); UDS - COCAINE NEGATIVE QUAL (NEGATIVE); UDS - OPIATE NEGATIVE QUAL (NEGATIVE); UDS - PCP NEGATIVE QUAL (NEGATIVE); UDS - THC NEGATIVE QUAL (NEGATIVE)
[2019-12-04 17:15] VITALS: BP 167/79
[2019-12-04 17:49] LABS: CKMB 1.7 U/L (0.0-3.6); TROPONIN-I 0.059 ng/mL (0.000-0.060)
[2019-12-04 18:15] VITALS: BP 178/81
[2019-12-04 19:15] VITALS: BP 166/92
[2019-12-04 22:30] VITALS: BP 146/76
--- NOTE | 2019-12-04 22:33 | NUR ---
NO TELEMETRY AVAILABLE PER ENVIRONMENTAL LAW PROFESSOR
[2019-12-04 22:59] LABS: CKMB 1.7 U/L (0.0-3.6); CREATINE KINASE 331 UL (21-215)
[2019-12-04 23:01] LABS: TROPONIN-I 0.103 ng/mL (0.000-0.060)
[2019-12-04 23:06] VITALS: BP 141/59
[2019-12-05 02:21] VITALS: BP 141/59
--- NOTE | 2019-12-05 02:33 | NUR ---
PT WITH MULTIPLE EPISODES OF LOOSE STOOL. PROVIDED MULTIPLE LINEN CHANGES. ALERT TO SELF ONLY. NO S/S OF DISTRESS OBSERVED. CALL LIGHT IN REACH. WILL CPOC.
--- NOTE | 2019-12-05 03:23 | NUR ---
16F ALEGRIA PLACED USING STERILE TECHNIQUE, PER ORDER, IMMEDIATE RETURN OF DARK CONCENTRATED URINE. PT TOLERATED WELL. CALL LIGHT IN REACH. WILL CPOC.
[2019-12-05 05:33] VITALS: BP 190/77
[2019-12-05 08:18] VITALS: BP 157/73
[2019-12-05 10:51] LABS: BASOPHILS 0.2 % (0-2); EOSINOPHILS 0 % (0-7); HEMOGLOBIN 12.9 g/dL (12-16); IMMATURE GRANULOCYTES 0.4 % (0-5); LYMPHOCYTES 11.6 % (15-50); MCH 32.7 pg (26.0-34.0); MCHC 33.9 g/dL (31.0-37.0); MCV 96.4 fL (80.0-100.0); MEAN PLATELET VOLUME 10.2 fL (7.4-10.4); MONOCYTES 16.5 % (2-11); NEUTROPHILS 71.3 % (40-80); PLATELET COUNT 140 10x3/uL (130-400); RBC 3.94 10x6/uL (4.00-5.40); RDW 14.3 % (11.5-14.5); WBC 5.4 10x3/uL (4.8-10.8)
[2019-12-05 11:12] LABS: APTT 37.1 SECONDS (22.8-39.4); INR 1.35 (0.85-1.17); PROTIME 16.6 SECONDS (11.6-15.0)
[2019-12-05 11:38] LABS: CALCIUM 8.8 mg/dL (8.5-10.1); CARBON DIOXIDE 26.3 mmol/L (21.0-32.0); CHLORIDE - SERUM 101 mmol/L (98-107); CKMB 1.8 U/L (0.0-3.6); CREATINE KINASE 285 UL (21-215); FERRITIN 897 ng/mL (3-244); MAGNESIUM - SERUM 1.7 mg/dL (1.8-2.4); PHOSPHOROUS 3.1 mg/dL (2.5-4.9); POTASSIUM - SERUM 3.8 mmol/L (3.5-5.1); PRO BNP 1578 pg/mL (0-125); SODIUM 136 mmol/L (136-145); THYROID STIMULATING HORMONE 0.57 uIU/mL (0.36-3.74); UREA NITROGEN 9 mg/dL (7-18)
[2019-12-05 11:40] LABS: C-REACTIVE PROTEIN 26.7 mg/dL (0.0-0.9); CALC OSMOLALITY 273 mosm/kg (275-300); CREATININE - SERUM 0.6 mg/dL (0.6-1.3); GLUCOSE 155 mg/dL (74-106); TROPONIN-I 0.074 ng/mL (0.000-0.060); eGFR NON AFRICAN AMERICAN > 90 mL/min (90-120)
[2019-12-05 11:53] LABS: ERYTHROCYTE SEDIMENTATION RATE 48 mm/hr (0-30)
[2019-12-05 13:37] VITALS: Ht 165.1 cm; Wt 74.8 kg
--- NOTE | 2019-12-05 17:12 | NUR ---
I have reviewed this patient and I concur with the Shift Assessment completed by the Licensed Practical Nurse today this shift.
--- NOTE | 2019-12-05 18:55 | NUR ---
REPORT RECEIVED, PT CARE ASSUMED. INTRODUCED SELF AND WROTE NAME ON BOARD. PT LYING IN BED, WATCHING TV, AAOX3, REORIENTED TO SITUATION. REQUESTING WATER, PROVIDED. DENIES ANY OTHER NEEDS AT THIS TIME. BED IN LOWEST, SRX2, CALL LIGHT WITHIN REACH. WILL CTM.
[2019-12-05 20:44] VITALS: BP 133/65
[2019-12-06 00:04] VITALS: BP 119/49
[2019-12-06 05:34] VITALS: BP 101/44
[2019-12-06 06:26] LABS: BASOPHILS 0.5 % (0-2); HEMOGLOBIN 11.5 g/dL (12-16); IMMATURE GRANULOCYTES 0.3 % (0-5); LYMPHOCYTES 19.9 % (15-50); MCH 32.3 pg (26.0-34.0); MCHC 33.8 g/dL (31.0-37.0); MCV 95.5 fL (80.0-100.0); MEAN PLATELET VOLUME 10.7 fL (7.4-10.4); MONOCYTES 10.3 % (2-11); PLATELET COUNT 164 10x3/uL (130-400); RBC 3.56 10x6/uL (4.00-5.40); RDW 14.4 % (11.5-14.5)
[2019-12-06 06:48] LABS: CALC OSMOLALITY 275 mosm/kg (275-300); CALCIUM 8.9 mg/dL (8.5-10.1); CARBON DIOXIDE 26.2 mmol/L (21.0-32.0); CHLORIDE - SERUM 103 mmol/L (98-107); GLUCOSE 156 mg/dL (74-106); MAGNESIUM - SERUM 1.8 mg/dL (1.8-2.4); PHOSPHOROUS 2.9 mg/dL (2.5-4.9); SODIUM 137 mmol/L (136-145); UREA NITROGEN 10 mg/dL (7-18)
[2019-12-06 06:56] LABS: CREATININE - SERUM 0.8 mg/dL (0.6-1.3)
[2019-12-06 06:57] LABS: POTASSIUM - SERUM 2.4 mmol/L (3.5-5.1); eGFR NON AFRICAN AMERICAN 75 mL/min (90-120)
[2019-12-06 07:23] LABS: UDS - AMPHET NEGATIVE QUAL (NEGATIVE); UDS - BARB NEGATIVE QUAL (NEGATIVE); UDS - BENZO NEGATIVE QUAL (NEGATIVE); UDS - COCAINE NEGATIVE QUAL (NEGATIVE); UDS - OPIATE POSITIVE QUAL (NEGATIVE); UDS - PCP NEGATIVE QUAL (NEGATIVE); UDS - THC NEGATIVE QUAL (NEGATIVE)
[2019-12-06 08:23] VITALS: BP 102/50
[2019-12-06 12:19] VITALS: BP 113/61
--- NOTE | 2019-12-06 14:18 | NUR ---
I have reviewed this patient and I concur with the Shift Assessment completed by the Licensed Practical Nurse today this shift.
[2019-12-06 16:00] VITALS: BP 138/66
--- NOTE | 2019-12-06 18:02 | NUR ---
PT AWAKE AND ORIENTED THROUGHOUT DAY. TOOK MEDICATIONS WITHOU COMPLICATIONS. PT HAS HAD BOYFRIEND VISITING FOR THE MAGORITY OF THE DAY. HAD FULL SHOWER AND LINNEN CHANGED. ACCIDNELTY PULLED OUT ONE I/V, BUT RAC IS STILL INTACT AND FLUSHING WITHOUT COMPLICAITION. NO COMPLAINTS OR CONCERNS AT THIS TIME. CL IN REACH SRX2.
--- NOTE | 2019-12-06 19:07 | NUR ---
PATIENT RESTING IN BED WITH NO S/S OF DISTRESS. GUEST AT BEDSIDE. PATIENT DENIES NEEDS AT THIS TIME. BED IN LOWEST POSITION AND CALL LIGHT WITHIN REACH. ENCOURAGED THE PATIENT TO CALL IF SHE HAS NEEDS. WILL CONTINUE TO MONITOR.
--- NOTE | 2019-12-06 20:49 | NUR ---
ADMINISTERED MEDS PER ORDERS. PATIENT DENIES OTHER NEEDS. WILL CONTINUE TO MONITOR.
[2019-12-06 21:02] VITALS: BP 112/67
[2019-12-07 00:45] VITALS: BP 102/55
[2019-12-07 04:37] VITALS: BP 117/53
[2019-12-07 06:48] LABS: ANION GAP 11.4 mmol/L (8-16); CALCIUM 8.5 mg/dL (8.5-10.1); CARBON DIOXIDE 26.4 mmol/L (21.0-32.0); CREATININE - SERUM 0.9 mg/dL (0.6-1.3); MAGNESIUM - SERUM 1.6 mg/dL (1.8-2.4); PHOSPHOROUS 3.6 mg/dL (2.5-4.9)
[2019-12-07 07:14] LABS: POTASSIUM - SERUM 2.8 mmol/L (3.5-5.1)
[2019-12-07 07:41] LABS: BASOPHILS 0.5 % (0-2); EOSINOPHILS 2.9 % (0-7); HEMATOCRIT 30.7 % (36.0-48.0); HEMOGLOBIN 10.1 g/dL (12-16); LYMPHOCYTES 33.8 % (15-50); MCH 31.4 pg (26.0-34.0); MCHC 32.9 g/dL (31.0-37.0); MCV 95.3 fL (80.0-100.0); MEAN PLATELET VOLUME 10.2 fL (7.4-10.4); MONOCYTES 17.1 % (2-11); NEUTROPHILS 45.7 % (40-80); PLATELET COUNT 174 10x3/uL (130-400); RBC 3.22 10x6/uL (4.00-5.40); RDW 14.4 % (11.5-14.5); WBC 4.4 10x3/uL (4.8-10.8)
[2019-12-07 07:50] VITALS: BP 116/56
[2019-12-07] MEDS ORDERED: FLAGYL 500500 MG/100 IV (11:37)
[2019-12-07] MEDS ORDERED: LEVOFLOXAC500 MG/100 IVPB (11:38)
[2019-12-07 12:01] VITALS: BP 121/60
[2019-12-07] MEDS ORDERED: LEVOFLOXACIN500 MG PO (12:20)
[2019-12-07] MEDS ORDERED: FLAGYL500 MG PO (12:21)
--- NOTE | 2019-12-07 12:23 | NUR ---
KENDY-PHARMACIST FROM [facility] CALLED R/T MEDS BEING IV. I TALKED TO XIN RAY AND CHANGED THEM TO ORAL AND CALLED KENDY AND LET HIM KNOW THAT.
--- NOTE | 2019-12-07 12:40 | MORECARE ---
CASE MANAGEMENT DISCHARGE SUMMARY PATIENT: WALDEMAR WOLFE UNIT: [id number] ADM DATE: 12/04/19 AGE: 69 : 48 SEX: F ROOM/BED: D.2541 AUTHOR: DONAL CASTRO PHYSICIAN: REFERRING PHYSICIAN: SHARON TOMAS MD DATE OF SERVICE: 12/07/19 Discharge Plan Patient Name: WALDEMAR WOLFE Facility: [facility]:[place] : 1950 Planned Disposition: Home Anticipated Discharge Date: 12/07/19 Discharge Date: Expected LOS: 3 Initial Reviewer: [email or web address] Initial Review Date: 12/07/2019 Generated: 12/07/19 1:39 pm Comments DCP- Discharge Planning Updated by [email or web address]: Meka Roa on 12/07/19 11:[address] Patient Name: WALDEMAR WOLFE Admission Status: ER Accout number: [id number] Admission Date: 12-04-2019 : 1950 Admission Diagnosis: Attending: SHARON TOMAS Current LOS: 3 Anticipated DC Date: 12-07-2019 Planned Disposition: Home Primary Insurance: MEDICARE A & B Discharge Planning Comments: CM met with patient to complete initial dc planning assessment. CM educated patient on the CM role and verbal consent given by patient to complete assessment. Patient lives at [facility] alone in her own apartment. At discharge patient plans to return and feels this is a safe discharge. CM discussed availability of home health, rehab services, and medical equipment. Patient denied known discharge needs at this time. States her friends, Sheyla and Joe, will drive her home on discharge. States she has had home health in the past, does not feel she needs it at this time. I informed her that if she changed her mind after discharge to notify Dr. Victoria for an order. CM will continue to follow and will assist as needed with dc plans/needs. Down Filler: Meka Roa DCPIA - Discharge Planning Initial Assessment Updated by [id number]: Meka Roa on 12/07/19 12:35 pm * Is the patient Alert and Oriented? Yes * How many steps to enter\exit or inside your home? 0/0 * PCP Dr. Walker * Pharmacy [facility] * [facility] * Facility Name [facility] * ADLs Partial Dependent * Partial ADLs (Assistance needed) Ambulation * Equipment Other Shower Chair Walker * Other Equipment Emergency Pull cord above bed * List name and contact numbers for known caregivers / representatives who currently or will assist patient after discharge: Cedric messina - [phone] * Verbal permission to speak to the caregivers and representatives has been obtained from the patient. Yes * Community resources currently utilized None * Additional services required to return to the preadmission environment? No * Can the patient safely return to the preadmission environment? Yes * Has this patient been hospitalized within the prior 30 days at any hospital? No Coverage Notice Reviewer: [email or web address] Sapna Roa Notice Issued Date-Time: 12/07/2019 12:32 Notice Type: IM Discharge Notice Notice Delivered To: Patient Relationship to Patient: Self Automotive Finance Manager Name: Delivery Method: HAND - Hand Delivered Susi Days: Prior Verbal Notification: Recipient Understood Notice: Yes Recipient Signature: Yes Med Rec Note Co-signed by Attending: Coverage Notice Comment: IMM explained, signed, given, copy placed in MR Patient Name: WALDEMAR WOLFE Page [id number] at 1240 All edits/amendments must be made on the electronic document DICTATION DATE: 12/07/19 1239 COMMAND AND CONTROL SYSTEMS INTEGRATOR: ERROL 12/07/19 1239 RPT#: [id number] DC DATE: STATUS: ADM IN [facility] [address] [place] [address] END OF REPORT
--- NOTE | 2019-12-07 16:10 | NUR ---
PT ESCORTED OUT VIA WHEELCHAIR TO POV, FRIEND DRIVING.
--- NOTE | 2019-12-08 13:55 | MORECARE ---
CASE MANAGEMENT DISCHARGE SUMMARY PATIENT: WALDEMAR WOLFE UNIT: [id number] ADM DATE: 12/04/19 AGE: 69 : 48 SEX: F ROOM/BED: D.6066 AUTHOR: DONAL CASTRO PHYSICIAN: REFERRING PHYSICIAN: SHARON TOMAS MD DATE OF SERVICE: 12/08/19 Discharge Plan Patient Name: WALDEMAR WOLFE Facility: [facility]:[place] : 1950 Planned Disposition: Home Anticipated Discharge Date: 12/07/19 Discharge Date: 12/07/2019 Expected LOS: 3 Initial Reviewer: [email or web address] Initial Review Date: 12/07/2019 Generated: 12/08/19 2:54 pm Comments DCP- Discharge Planning Updated by [email or web address]: Meka Roa on 12/07/19 11:[address] Patient Name: WALDEMAR WOLFE Admission Status: ER Accout number: [id number] Admission Date: 12-04-2019 : 1950 Admission Diagnosis: Attending: SHARON TOMAS Current LOS: 3 Anticipated DC Date: 12-07-2019 Planned Disposition: Home Primary Insurance: MEDICARE A & B Discharge Planning Comments: CM met with patient to complete initial dc planning assessment. CM educated patient on the CM role and verbal consent given by patient to complete assessment. Patient [facility] alone in her own apartment. At discharge patient plans to return and feels this is a safe discharge. CM discussed availability of home health, rehab services, and medical equipment. Patient denied known discharge needs at this time. States her friends, Sheyla and Joe, will drive her home on discharge. States she has had home health in the past, does not feel she needs it at this time. I informed her that if she changed her mind after discharge to notify Dr. Victoria for an order. CM will continue to follow and will assist as needed with dc plans/needs. Retort Fireman: Meka Roa DCPIA - Discharge Planning Initial Assessment Updated by [id number]: Meka Roa on 12/07/19 12:35 pm * Is the patient Alert and Oriented? Yes * How many steps to enter\exit or inside your home? 0/0 * PCP Dr. Walker * Pharmacy [facility] * Preadmission Environment [facility] * Facility Name [facility] * ADLs Partial Dependent * Partial ADLs (Assistance needed) Ambulation * Equipment Other Shower Chair Walker * Other Equipment Emergency Pull cord above bed * List name and contact numbers for known caregivers / representatives who currently or will assist patient after discharge: Cedric messina - [phone] * Verbal permission to speak to the caregivers and representatives has been obtained from the patient. Yes * Community resources currently utilized None * Additional services required to return to the preadmission environment? No * Can the patient safely return to the preadmission environment? Yes * Has this patient been hospitalized within the prior 30 days at any hospital? No Coverage Notice Reviewer: [id number] Sapna Roa Notice Issued Date-Time: 12/07/2019 12:32 Notice Type: IM Discharge Notice Notice Delivered To: Patient Relationship to Patient: Self Reporting Analyst Name: Delivery Method: HAND - Hand Delivered Susi Days: Prior Verbal Notification: Recipient Understood Notice: Yes Recipient Signature: Yes Med Rec Note Co-signed by Attending: Coverage Notice Comment: IMM explained, signed, given, copy placed in MR Last DP export: 12/07/19 11:40 a Patient Name: WALDEMAR WOLFE Page 10016 at 1355 All edits/amendments must be made on the electronic document DICTATION DATE: 12/08/19 1355 RESIDENTIAL GAS HEAT TECHNICIAN: ERROL 12/08/19 1355 RPT#: [id number] DC DATE:12/07/19 STATUS: DIS IN [facility] [address] [place] [address] END OF REPORT
[2019-12-10 19:08] LABS: OVA + PARASITE EXAM Final report (())
== END 2019-12-07 16:11 | disposition home or self-care (01) | DRG 871 ==
LOC: D.ER 15:57 → D.M2 20:37
PROVIDERS: Family Medicine; ADMIT Emergency Medicine; ATTEND Emergency Medicine
DX: A41.9 Sepsis, unspecified organism (principal); G93.41 Metabolic encephalopathy; I21.A1 Myocardial infarction type 2; K51.00 Ulcerative (chronic) pancolitis without complications; W19.XXXA Unspecified fall, initial encounter; F32.9 Major depressive disorder, single episode, unspecified; G47.00 Insomnia, unspecified; I10 Essential (primary) hypertension; E78.5 Hyperlipidemia, unspecified; I25.10 Atherosclerotic heart disease of native coronary artery without angina pectoris; E11.9 Type 2 diabetes mellitus without complications; M25.551 Pain in right hip; R33.9 Retention of urine, unspecified

== ENCOUNTER → 2020-06-22 08:55 | Day surgery (SDC) | payer MEDICARE, OTHER ==
[2019-12-05 13:37] VITALS: BMI 27.4
--- NOTE | 2020-06-21 14:53 | NUR ---
ATTEMPTED TO CONFIRM PT APPT FOR TOMORROW - NO ANSWER, LEFT VM TO CALL US
--- NOTE | ~2020-06-22 | HEMODYNAMI ---
PATIENT:WALDEMAR WOLFE MEDICAL RECORD: [id number] : [birth year] [id number] ADMISSION DATE: 06/22/20 Generatedon:19:42 Patient name: WALDEMAR WOLFE Patient #: [id number] SSN: DO B: 1950 Date of study: 06/22/2020 Page: Of Hemodynamic Procedure Report Patient Data Patient Demographics Procedure consent was obtained First Name: WALDEMAR Gender: Female Last Name: AIDEN : 1950 Middle Initial: L Age: 70 year(s) Patient #: [id number] Race: Unknown Additional ID: [id number] Contact details [address]: [address] [place] [address] State: [place] City: [place] Zip code: [address] Past Medical History Allergies: No known allergies Admission Admission Data Admission Date: 06/22/2020 Admission Time: 8:55 Procedure Procedure Types Cath Procedure Peripheral Cath Diagnostic Procedure Miscellaneous Aspiration/Injection (Joint) Procedure Description Procedure Date Procedure Date: 06/22/2020 Procedure Start Time: 9:32 Procedure Staff Name Function Wicho Coker RT Monitor Nancy Andino MD Performing Physician Procedure Data Cath Procedure Fluoroscopy Diagnostic fluoroscopy Total fluoroscopy Time: 0.3 time: 0.3 min min Diagnostic fluoroscopy Total fluoroscopy dose: 3 dose: 3 mGy mGy Hemodynamics Rest Pre Cath Intra NCS Post Cath Procedure Log Time Note 9:25:53 Wicho Coker RT (R) (CV) sent for patient. Start room use. 9:26:03 Time tracking: Regular hours (M-F 7:00 - 5:00) 9:26:12 Patient received from Other to IR Alert and oriented. Tansferred to table in Supine position. 9:26:14 Signed procedure consent form obtained from patient. 9:26:15 Correct patient and procedure confirmed by team. 9:26:17 Full Disclosure recording started 9:26:17 9:26:26 Pre-procedure instructions explained to patient. 9:26:26 Pre-op teaching completed and patient verbalized understanding. 9::34 Is patient on blood thinner?No 9:26:47 PT STATES NO KNOW DRUG ALLERGIES 9:27:05 Right Hip was prepped with betadine and draped in sterile fashion. 9:27:15 SAFE-T PLUS MYELOGRAM TRAY opened to sterile field. 9:30:32 Physician arrived 9:30:33 --------ALL STOP TIME OUT------ 9:30:34 Final Timeout: patient, procedure, and site verified with staff and physician. All members of the team are in agreement. 9:30:43 Right groin site verified by team. 9:30:53 Sedation plan: Local Anesthetic Medication:Lidocaine 9:32:09 Procedure started. 9:32:15 Local anesthetic to Right Hip with Lidocaine 1% by Wicho Coker RT (R) (CV).INITIAL ACCESS ONLY 9:40:22 Procedure ended.(Physican Out) 9:41:28 Fluoroscopy time 00.30 minutes. 9:41:31 Fluoroscopy dose: 3 mGy 9:41:31 Flurop Dose total: 3 9:41:44 BANDAIDE APPLIED SITE STABLE PT SENT HOME Device Usage Item Name Manufacture Quantity Catalog Hospital Part Current Minimal Lot# / Number Charge Number Stock Stock Serial# Code SAFE-T [employer] 1 [id number] PLUS MYELOGRAM TRAY Signature Audit [place] Stage Time Signature Unsigned Intra-Procedure 06/22/2020 Wicho 9:42:04 AM John Paul RT (R) (CV) [facility] [address] [place] [address]
[~2020-06-22 08:55] MED LIST changes: +FLAGYL 500500 MG/100 IV; +FLAGYL500 MG PO; +LEVOFLOXAC500 MG/100 IVPB; +LEVOFLOXACIN500 MG PO
== END | disposition home or self-care (01) ==
LOC: D.RAD 08:55
PROVIDERS: ATTEND Orthopaedic Surgery
DX: M16.11 Unilateral primary osteoarthritis, right hip (principal)